=== PATIENT | female | born 1965 | race Caucasian/White ===

== ENCOUNTER → 2016-12-22 | Outpatient (CLI) | payer OTHER ==
[~2016-12-22] MED LIST: CITALOPRAM HBR40 MG PO; CLARITIN10 M2 PO; CYMBALTA PO; DESYREL50 MG PO; FLEXERIL10 M1 PO; FLEXERIL10 MG PO; HYDROCHLOROTHIA25 MG PO; IBUPROFEN800 MG PO; MEDROL DOSEPAK4 MG PO; NAPROSYN500 MG PO; NEURONTIN800 MG PO; PERCOCET PO; PRAVACHOL PO; TENORMIN25 MG PO; VITAMIN B 12 PO; ZANTAC150 MG PO
--- NOTE | ~2016-12-22 | CR150 ---
[facility] A Service of [facility] & [facility] RADIOLOGY TEXT RESULTS PATIENT: ISMAEL WALKER LOCATION: [facility] : 65 UNIT #: [id number] AGE: [address]: Laura Oakes APRN SEX: F ORDER DR: [id number] [place] [id number] O MR#: [id number] Acc #: [id number] NAME: ISMAEL WALKER : 1965 SEX: F STUDY DATE/TIME: 12/22/2016 11:55 UNIT: [facility] ROOM: STUDY DESCRIPTION: CR Hip Min 2 Views Lt Attending Physician: Laura Oakes Aprn Referring Physician: Laura Oakes Aprn Ordering Physician: Laura Oakes Aprn Primary Care Physician: Pamela Wright A.P.R.N. MEDICAL IMAGING REPORT This report is preliminary unless electronic signature is present. EXAM Left hip series INDICATIONS Left hip pain for the past 10 years. PROCEDURE Frontal view pelvis, lateral view left hip. COMPARISON 03/04/2016 FINDINGS No fracture or dislocation. IMPRESSION No acute findings. Dictated by... Kevin Padilla M.D. THIS IS AN ELECTRONICALLY VERIFIED REPORT Kevin Padilla M.D. at 12/23/2016 7:09 AM EED/psc TD: 12/22/2016 22:28 JOB #: [id number] MEDICAL IMAGING REPORT Page 1 of 1
--- NOTE | ~2016-12-22 | CR58 ---
[facility] A Service [facility] RADIOLOGY TEXT RESULTS PATIENT: ISMAEL WALKER LOCATION: [facility] : 65 UNIT #: [id number] AGE: [address]: Laura Oakes APRN SEX: F ORDER DR: [id number] [place] [id number] O MR#: [id number] Acc #: [id number] NAME: ISMAEL WALKER : 1965 SEX: F STUDY DATE/TIME: 12/22/2016 11:55 UNIT: [facility] ROOM: STUDY DESCRIPTION: CR Cervical Spine 2 or 3 Views Attending Physician: Laura Oakes Aprn Referring Physician: Laura Oakes Aprn Ordering Physician: Laura Oakes Aprn Primary Care Physician: Pamela Wright A.P.R.N. MEDICAL IMAGING REPORT This report is preliminary unless electronic signature is present. EXAM Cervical spine series INDICATIONS Neck pain for the past 10 years. PROCEDURE Lateral, flexion and extension views of the cervical spine. COMPARISON 04/02/2013 FINDINGS Cervical bodies have normal height; alignment is preserved. No abnormal motion on flexion and extension. There is wmve-wh-evwasbzp multilevel degenerative change most significant at C6-7. IMPRESSION Ypct-jm-[id number] multilevel degenerative change most significant at C6-7. No abnormal motion. Dictated by... Kevin Padilla M.D. THIS IS AN ELECTRONICALLY VERIFIED REPORT Kevin Padilla M.D. at 12/23/2016 7:09 AM EED/psc TD: 12/22/2016 22:17 JOB #: [id number] [facility] A Service [facility] RADIOLOGY TEXT RESULTS PATIENT: ISMAEL WALKER LOCATION: [facility] : 65 UNIT #: [id number] AGE: [address]: Laura Oakes APRN SEX: F ORDER DR: MEDICAL IMAGING REPORT Page 1 of 1
--- NOTE | ~2016-12-22 | CR151 ---
[facility]. [facility] A Service of [facility] & [facility] RADIOLOGY TEXT RESULTS PATIENT: ISMAEL WALKER LOCATION: [facility] : 65 UNIT #: [id number] AGE: [address]: Laura Oakes APRN SEX: F ORDER DR: [id number] [place] [id number] O MR#: [id number] Acc #: [id number] NAME: ISMAEL WALKER : 1965 SEX: F STUDY DATE/TIME: 12/22/2016 11:55 UNIT: [facility] ROOM: STUDY DESCRIPTION: CR Hip Min 2 Views Rt Attending Physician: Laura Oakes Aprn Referring Physician: Laura Oakes Aprn Ordering Physician: Laura Oakes Aprn Primary Care Physician: Pamela Wright A.P.R.N. MEDICAL IMAGING REPORT This report is preliminary unless electronic signature is present. EXAM Right hip series INDICATIONS Right hip pain for the past 10 years. PROCEDURE Frontal view pelvis, lateral view right hip. COMPARISON 03/04/2016 FINDINGS No fracture or dislocation. Little, if any degenerative change. IMPRESSION No acute findings. Dictated by... Kevin Padilla M.D. THIS IS AN ELECTRONICALLY VERIFIED REPORT Kevin Padilla M.D. at 12/23/2016 7:09 AM EED/psc TD: 12/22/2016 22:29 JOB #: [id number] MEDICAL IMAGING REPORT Page 1 of 1
--- NOTE | ~2016-12-22 | CR181 ---
[facility]. [facility] A Service of [facility] RADIOLOGY TEXT RESULTS PATIENT: ISMAEL WALKER LOCATION: [facility] : 65 UNIT #: [id number] AGE: [address]: Laura Oakes APRN SEX: F ORDER DR: [id number] [place] [id number] O MR#: [id number] Acc #: [id number] NAME: ISMAEL WALKER : 1965 SEX: F STUDY DATE/TIME: 12/22/2016 11:55 UNIT: [facility] ROOM: STUDY DESCRIPTION: CR Lumbar Spine 2 or 3 Views Attending Physician: Laura Oakes Aprn Referring Physician: Laura Oakes Aprn Ordering Physician: Laura Oakes Aprn Primary Care Physician: Pamela Wright A.P.R.N. MEDICAL IMAGING REPORT This report is preliminary unless electronic signature is present. EXAM Lumbar spine series INDICATIONS Back pain for the past 10 years. PROCEDURE Lateral, flexion/extension views lumbar spine. COMPARISON 04/21/2014 FINDINGS Lumbar bodies have normal height. Alignment is preserved. No abnormal motion on flexion/extension. Facet change in the lower lumbar spine. IMPRESSION Lower lumbar spine facet arthrosis. No change from 04/21/2014. Dictated by... Kevin Padilla M.D. THIS IS AN ELECTRONICALLY VERIFIED REPORT Kevin Padilla M.D. at 12/23/2016 7:09 AM EED/psc TD: 12/22/2016 22:32 JOB #: [id number] MEDICAL IMAGING REPORT Page 1 of 1
== END | disposition home or self-care (01) ==
LOC: SRAD 11:47
DX: M51.36 Other intervertebral disc degeneration, lumbar region (principal); M50.323 Other cervical disc degeneration at C6-C7 level; M25.551 Pain in right hip; M25.552 Pain in left hip
CPT/HCPCS: 72040; 72100; 73502